=== PATIENT | male | born 1950 | race Caucasian/White ===

== ENCOUNTER 2017-02-07 09:16 | Outpatient (CLI) | payer MEDICARE, MEDICAID ==
[2017-02-07] MEDS ORDERED: CT SWABBABLE VALVE TRANS SET 1 EA INFUS.SET MC ONE (09:55)
[2017-02-07] MEDS ORDERED: IOHEXOL-350 100 ML VIAL IV ONE (09:55)
[2017-02-07] MEDS ORDERED: METOPROLOL TARTRATE INJ 5 MG/5 ML AMPUL ONE ×3 (10:39→11:10)
--- NOTE | 2017-02-07 10:40 | NUR ---
PT RECEIVED ON UNIT, AMBULATORY, DENIES PAIN, NO SOB NOTED WITH EXERTION. A&OX4 ESTONIAN SPEAKING. HX OBTAINED FROM DAUGHTER EVA. IV HL #20 LAC. ADMINISTERED 5MG IVP METOPROLOL ORDERED. TELE MONITOR ONGOING. EDUCATED. TRANSFERED TO RADIOLOGY IN STABLE CONDITION
--- NOTE | 2017-02-07 11:05 | NUR ---
2ND DOSE OF IV METOPROLOL 5 MG ADMINISTERED, HR 65. INSTRUCTED TO TAKE DEEP BREATHS AND RELAX
--- NOTE | 2017-02-07 11:09 | NUR ---
NITRO 0.4MG SL ADMINISTERED, EDUCATED PT.
--- NOTE | 2017-02-07 11:19 | NUR ---
3RD DOSE OF IV METOPROLOL ADMINISTERED, HR 76. ENCOURAGED PT TO RELAX AND TAKE DEEP BREATHS
== END 2017-02-07 23:59 | disposition home or self-care (01) ==
LOC: CT 09:16
PROVIDERS: ATTEND Internal Medicine Interventional Cardiology
DX: I25.10 Atherosclerotic heart disease of native coronary artery without angina pectoris (principal); M47.894 Other spondylosis, thoracic region; I51.7 Cardiomegaly; I10 Essential (primary) hypertension; E78.5 Hyperlipidemia, unspecified
CPT/HCPCS: 75574; J3490 ×3; Q9967

== ENCOUNTER 2017-06-08 20:11 | Emergency (ER) | payer MEDICARE, OTHER ==
[~2017-06-08] VITALS: Ht 162.6 cm; Wt 84.8 kg
--- NOTE | 2017-06-08 20:30 | NUR ---
BIBSELF C/O LEFT SIDE ABD PAIN. HX KIDNEY STONES. SEEN BY SENIOR ACCOUNT DIRECTOR FOR EVAL. NAD NOTED. VSS. SAFETY AND COMFORT MEASURES PROVIDED. WILL MONITOR.
--- NOTE | 2017-06-08 21:00 | NUR ---
IV ACCESS STARTED. PT MEDICATED ORDERED.
[2017-06-08 21:19] LABS: BASOPHILS % (AUTO) 0.4 % (0.0-2.0); EOSINOPHILS % (AUTO) 4.7 % (0.0-6.0); HEMATOCRIT 39 % (39-51); HEMOGLOBIN 13.5 g/dL (13.5-17.5); LYMPHOCYTES # (AUTO) 1.7 /CMM (0.8-4.8); LYMPHOCYTES % (AUTO) 16.7 % (20.0-44.0); MEAN CORPUSCULAR HGB CONC 34 g/dl (31.0-36.0); MEAN CORPUSCULAR VOLUME 80 fL (80-96); MONOCYTES # (AUTO) 0.4 /CMM (0.1-1.30); MONOCYTES % (AUTO) 3.9 % (2.0-12.0); NEUTROPHILS # (AUTO) 7.7 /CMM (1.8-8.9); NEUTROPHILS % (AUTO) 74.3 % (43.0-81.0); PLATELET COUNT (AUTO) 275 /CMM (150-450); RDW COEFFICIENT OF VARIATION 11.9 (11.5-15.0); WHITE BLOOD COUNT (AUTO) 10.3 K/uL (4.3-11.0)
[2017-06-08] MEDS ORDERED: KETOROLAC TROMETHAMINE INJ 30 MG/ML VIAL ONE (21:23)
[2017-06-08] MEDS ORDERED: ONDANSETRON HCL/PF 4 MG/2 ML VIAL ONE (21:23)
[2017-06-08] MEDS ORDERED: MORPHINE SULFATE INJ 4 MG/ML DISP.SYRIN ONE (21:24)
[2017-06-08] MEDS ORDERED: IV NS 0.9% 1,000 ML BAG IV ONE (21:30)
[2017-06-08] MEDS ORDERED: ONDANSETRON HCL/PF 4 MG/2 ML VIAL IVP ONE (21:30)
[2017-06-08] MEDS ORDERED: KETOROLAC TROMETHAMINE INJ 30 MG/ML VIAL IV ONE (21:30)
[2017-06-08] MEDS ORDERED: MORPHINE SULFATE INJ 2 MG/ML DISP.SYRIN IV ONE (21:30)
[2017-06-08 21:44] LABS: CALCIUM, SERUM 8.3 mg/dL (8.5-10.1); CREATININE 1.2 mg/dL (0.6-1.3); POTASSIUM 4.2 mmol/L (3.5-5.1)
[2017-06-08 21:58] LABS: APPEARANCE,URINE SL CLOUDY (CLEAR); BILIRUBIN,URINE NEGATIVE (NEGATIVE); BLOOD, URINE 3+ Ery/uL (NEGATIVE); COLOR,URINE YELLOW (YELLOW); KETONES,URINE NEGATIVE (NEGATIVE); LEUKOCYTE ESTERASE ,URINE NEGATIVE (NEGATIVE); NITRITE, URINE NEGATIVE (NEGATIVE); PH,URINE 5.5 (5.0-8.0); PROTEIN,URINE 1+ mg/dl (NEGATIVE); UGLUCOSE NEGATIVE (NEGATIVE); UROBILINOGEN,URINE 0.2 EU/dL (0.2)
[2017-06-08 22:06] LABS: BACTERIA,URINE Few /HPF (None Seen); RBC,URINE TOO NUMEROUS TO COUN /HPF (0-2); SQUAMOUS EPITHELIAL CELL,UR Few /HPF (None Seen); WBC,URINE 0-2 /HPF (0-3)
--- NOTE | 2017-06-08 22:40 | NUR ---
IV removed. Catheter intact and site benign. Pressure and 4x4 applied to site. No bleeding noted.
[2017-06-08 22:56] VITALS: BP 151/69
--- NOTE | 2017-06-08 22:56 | NUR ---
Patient discharged to home in stable condition. Written and verbal after care instructions given. Patient verbalizes understanding of instruction.
== END 2017-06-08 22:57 | disposition home or self-care (01) ==
LOC: ER 20:13
DX: N23 Unspecified renal colic (principal)
CPT/HCPCS: 36415; 80048; 81001; 85025; 96361; 96374; 96375; 99284; A4606; J1885; J2270; J2405; J7030; 81000-TC; Z7610

== ENCOUNTER → 2020-06-05 | Day surgery (SDC) | payer MEDICARE, OTHER ==
[~2020-06-05] VITALS: Ht 160 cm; Wt 94.3 kg
[~2020-06-05] MED LIST: IOHEXOL-350 100 ML VIAL IV ONE; IV NS 0.9% 250 ML IV ONE; IV NS 0.9% 500 ML IV PRN; METOPROLOL TARTRATE INJ 5 MG/5 ML AMPUL ONE; NITROGLYCERIN 0.4 MG/TAB BOTTLE SL ONE
[2020-06-05 09:49] LABS: CALCIUM, SERUM 8.6 mg/dL (8.5-10.1); CREATININE 1.1 mg/dL (0.6-1.3); POTASSIUM 3.9 mmol/L (3.5-5.1)
[2020-06-05] MEDS: METOPROLOL TARTRATE INJ 5 MG/5 ML AMPUL IVP PRN ×3 (10:07→10:17)
[2020-06-05 10:17] VITALS: BP 138/73
--- NOTE | 2020-06-05 10:28 | NUR ---
outpatient CTA heart, consented; all questions answered; PIV g 18 on L ac inserted by Master Marin, Pt given a total of3 doses of Metoprolol 5mg IVP and NTG; pt tolerated procedure ; VSS: left Ac line removed; VSS ; pt sent home
== END | disposition home or self-care (01) ==
LOC: CT 08:38
PROVIDERS: ATTEND Internal Medicine Interventional Cardiology
DX: I10 Essential (primary) hypertension (principal); I25.10 Atherosclerotic heart disease of native coronary artery without angina pectoris
CPT/HCPCS: 36415; 75574; 80048; J3490; J7050; Q9967